=== PATIENT | male | born 1935 | race Caucasian/White ===

== ENCOUNTER 2017-11-20 11:45 | Inpatient (IN) | payer OTHER ==
[~2017-11-20] VITALS: Ht 165.1 cm; Wt 70.1 kg
[~2017-11-20 11:45] MED LIST: DIGOXIN250 MCG PO; METOPROLOL TART25 M1 PO; WARFARIN SODIUM5 M1 PO
--- NOTE | 2017-11-20 14:40 | ED DYSPNEA/ASTHMA COMPLAINT ---
History of Present Illness General Chief Complaint: Dyspnea (COPD, CHF, Other) Stated Complaint: DIFF BREATHING Source: patient, family, old records Exam Limitations: no limitations Vital Signs & Intake/Output Vital Signs & Intake/Output Vital Signs Date Time Temp Pulse Resp B/P B/P Pulse O2 O2 Flow FiO2 Mean Ox Delivery Rate 11/20 1954 98.4 84 18 164/85 11/20 1804 98.0 74 18 164/85 96 Room Air Room Air 11/20 1552 98 Room Air Room Air 11/20 1510 97.5 70 20 173/84 95 Room Air 11/20 1202 98.3 84 18 153/86 93 Room Air Allergies Coded Allergies: Sulfa (Sulfonamide Antibiotics) (Intermediate, HIVES 11/20/17) Reconcile Medications Digoxin 250 MCG TABLET 1 TAB PO DAILY AFIB (Reported) Metoprolol Tartrate 25 MG TABLET 1 TAB PO BID HTN (Reported) Warfarin Sodium 5 MG TABLET 1 TAB PO DAILY AFIB (Reported) Triage Note: 82 YEAR OLD MALE STATES THAT HE HAS HISTORY OF AFIB, TAKES COUMADIN STATES THAT FOR MONTHS NOW HE HAS BEEN HAVING EXERTIONAL SOB, STATES THAT HIS R LEG IS NOW SWOLLEN, O2 SAT 92 % ON RA. DENIES COUGH/CP. COMPLAINS THAT HE FEELS LIKE HIS FACE IS SWOLLEN Triage Nurses Notes Reviewed? yes Onset: Gradual Duration: x 1 month Timing: recent history Severity: moderate Activities at Onset: activity Prior Episodes/Possible Cause: occasional episodes Modifying Factors: Worsens With: movement. Associated Symptoms: denies HPI: 82 YEAR OLD MALE with history of htn, afib on coumadin, tb presents to the emergency room with family for evaluation complain 1 month history of progressively worsening dyspnea with exertion leg swelling. He states his symptoms are only present with exertion orthopnea. No shortness of breath at rest. He reports to a chest heaviness bilaterally nonradiating only with exertion when his shortness of breath comes on. No cough hemoptysis. No abdominal pain nausea vomiting diarrhea. No recent change in his appetite no weight loss. Patient is been seen by multiple doctors including fiberglass tube molder, and fleet maintenance manager Dr. Manzano with no known cause identified. He is on digoxin metoprolol and Coumadin He is supposed to have a workup at [place] next month on his abdomen as he was told that he had an enlarged spleen Past History Travel History Traveled to [place] past 21 day No Medical History Any Pertinent Medical History? see below for history Neurological: NONE EENT: NONE Cardiovascular: AFIB, hypertension Respiratory: NONE Gastrointestinal: NONE Hepatic: NONE Renal: NONE Musculoskeletal: NONE Psychiatric: NONE Endocrine: NONE Surgical History Surgical History: non-contributory Psychosocial History What is your primary language Chinese Tobacco Use: Never used ETOH Use: denies use Illicit Drug Use: denies illicit drug use Family History Hx Contributory? No Review of Systems Review of Systems Constitutional: Reports: see HPI. Comments Review of systems: See HPI, All other systems negative. Constitutional, no chills no fever, HEENT: no sore throat no congestion, Cardiovascular: chest pain , no palpitation Skin: no rashes, no change in skin Respiratory: dyspnea no cough no sputum GI: No nausea no vomiting, no diarrhea, : No dysuria Muscle skeletal: No joint pain, no back pain Neurologic: , no headache Heme/endocrine: No bruising Immunology: No lymphadenopathy Physical Exam Physical Exam General Appearance: well developed/nourished, alert, awake, comfortable Respiratory: normal breath sounds, chest non-tender, no respiratory distress Comments: Well-developed well-nourished person in no acute distress HEENT: Normal EENT exam; PERRL, EOMI, HEAD is atraumatic. moist mucous membranes. Neck: Supple, normal range of motion Back: Nontender,Full range of motion Cardiovascular: Regular rate and rhythms no murmurs rubs or gallops, normal JVP Respiratory: Chest nontender.There were no bony deformities, no asymmetry. No respiratory distress. Patient speaking in full complete sentences. Breath sounds clear to auscultation bilaterally: NO W/R/R Abdomen: Soft, nontender nondistended, Normal bowel sounds. No rebound/guarding, No appreciable enlargement of the abdominal aorta, No ascites. Extremity: b/l 2+ edema, full range of motion of extremities Neuro: Alert oriented x3, motor sensory normal. There were no obvious focal neurologic abnormalities. Skin: No appreciable rash on exposed skin, skin is warm and dry. Psych: Mood and affect is normal, memory and judgment is normal. Core Measures ACS in differential dx? Yes CVA/TIA Diagnosis No Sepsis Present: No Sepsis Focused Exam Completed? No Progress Differential Diagnosis: AMI, bronchitis, CHF, COPD, pneumonia, unstable angina, CIRRHOSIS, MISTY, ELECTROLYTE ABNORMALITY Plan of Care: Orders Procedure Date/time Status CHF Diet 11/21 B Active PROTHROMBIN TIME 11/21 06 Active BASIC ELECTROLYTES PLUS BUN&CR 11/21 0600 Active TROPONIN LEVEL 11/20 2335 Active EKG 11/20 2335 Active DIGOXIN 11/20 2300 Active Pathway - chart 11/20 1759 Active Pathway - chart 11/20 1758 Active House Staff 11/20 1758 Active Code Status 11/20 1758 Active ED Holding Orders 11/20 1734 Active Admit to inpatient 11/20 1734 Active Patient Data 11/20 1711 Active Telemetry/Animal Science Instructor 11/20 1303 Active TROPONIN LEVEL 11/20 1303 Complete PARTIAL THROMBOPLASTIN TIME 11/20 1303 Complete PROTHROMBIN TIME 11/20 1303 Complete MAGNESIUM 11/20 1303 Complete COMPREHENSIVE METABOLIC PANEL 11/20 1303 Complete CBC WITHOUT DIFFERENTIAL 11/20 1303 Complete B-TYPE NATRIURETIC PEP (BNP) 11/20 1303 Complete EKG 11/20 1149 Active Weight 11/20 UNK Active VTE Mechanical Prophylaxis 11/20 UNK Active Vital Signs 11/20 UNK Active Intake & Output 11/20 UNK Active Activity/Ambulation 11/20 UNK Active ECHOCARDIOGRAM 11/20 UNK Active Current Medications Sig/Marisa Start time Last Medication Dose Stop Time Status Admin Enoxaparin Sodium 40 MG DAILY 11/21 1000 AC (Lovenox) Furosemide 40 MG DAILY 11/21 1000 AC (Lasix) Metoprolol Tartrate 25 MG BID 11/20 2200 AC (Lopressor) Digoxin 0.25 MG DAILY 11/20 1922 AC 11/20 (Lanoxin) 1955 Acetaminophen 650 MG Q6P PRN 11/20 1800 AC (Tylenol) Acetaminophen 1,000 MG Q6P PRN 11/20 1800 AC (Ofirmev) Laboratory Tests 11/20/17 1545: Anion Gap 12, Estimated GFR > 60, BUN/Creatinine Ratio 20.0, Glucose 89, Calcium 8.5, Magnesium 1.7, Total Bilirubin 2.1 H, AST 38, ALT 37, Alkaline Phosphatase 173 H, Troponin I < 0.01, Hgc-G-Wapdkoytxoe Pept 675 H, Total Protein 7.0, Albumin 3.5, Globulin 3.5, Albumin/Globulin Ratio 1.0 L, PT 46.3 *H, INR 4.48 * H, APTT 47 H, CBC w Diff NO MAN DIFF REQ, RBC 4.11 L, MCV 91.1, MCH 30.6, RDW 15.6 H, MPV 10.5 H, Gran % 73.9, Lymphocytes % 12.1 L, Monocytes % 11.1 H, Eosinophils % 2.7, Basophils % 0.2, Absolute Granulocytes 3.9, Absolute Lymphocytes 0.6 L, Absolute Monocytes 0.6, Absolute Eosinophils 0.1, Absolute Basophils 0, PUBS MCHC 33.6 Labs ordered old records reviewed chest x-ray ultrasound ordered. Case discussed with Dr. Muro agrees with plan 1600 discussed with patient and his family at length all of his lab results to date. Call placed to cardiology CASE D/W DR MANZANO AGREES WITH [facility] FOR ADMISSION, LASIX 20MG IV ORDERED CASE D/W DR RAINES WILL ADMIT Diagnostic Imaging: Viewed by Me: Radiology Read, Ultrasound. Discussed w/RAD: Radiology Read, Ultrasound. Radiology Impression: PATIENT: LYRIC PHILLIPS PRESENT AGE: 82 PATIENT ACCOUNT NO: [id number] : 33 LOCATION: [facility] ORDERING PHYSICIAN: Sheldon MCKEON SERVICE DATE: 11/20/17 EXAM TYPE: US - US-EXT BILAT VENOUS DOPPLER EXAMINATION: US TRIPLEX OF LOWER EXTREMITIES, BILATERAL CLINICAL INFORMATION: Bilateral lower extremity edema. COMPARISON: None TECHNIQUE: Color-flow triplex imaging with spectral analysis and compression Doppler were performed on the lower extremities. FINDINGS: Respiratory variation, normal compression and augmented flow are noted throughout the lower extremities. The visualized common femoral vein, superficial femoral vein, profunda femoral vein, popliteal vein and midcalf peroneal and posterior tibial venous segments show no evidence of deep venous thrombosis. There is no Gibson's cyst. IMPRESSION: Normal triplex scan without evidence of deep venous thrombosis involving the lower extremities. DICTATED BY: Jerman Rosas MD DATE/TIME DICTATED:11/20/171536 DRIVER SUPERVISOR:GLADIS DATE/TIME TRANSCRIBED:11/20/171536 CONFIDENTIAL, DO NOT COPY WITHOUT APPROPRIATE AUTHORIZATION. <Electronically signed in Other Vendor System> SIGNED BY: Jerman Rosas MD 11/20/17 1545, PATIENT: LYRIC PHILLIPS PRESENT AGE: 82 PATIENT ACCOUNT NO: [id number] : 33 LOCATION: [facility] ORDERING PHYSICIAN: Sheldon MCKEON SERVICE DATE: 11/20/171446 EXAM TYPE: RAD - XRY-PORTABLE CHEST XRAY EXAMINATION: XR PORTABLE CHEST CLINICAL INFORMATION: Dyspnea. Chest heaviness. CHF. COMPARISON: Chest CT 05/04/2017. TECHNIQUE: Portable frontal view of the chest was obtained. FINDINGS: There are patchy airspace opacities at the right and left lung base. There is retrocardiac opacification. There is central vascular congestion. There is no large volume pleural effusion or pneumothorax. The heart is enlarged. There are pericardial calcifications. There are postoperative changes related to median sternotomy. The osseous structures are intact. IMPRESSION: 1. Patchy airspace opacities at the lung bases which may represent pulmonary edema. 2. Retrocardiac opacity may represent alveolar edema, atelectasis, consolidation not excluded. 3. Redemonstration of cardiomegaly with pericardial calcifications. DICTATED BY: Antelmo Forman MD DATE/TIME DICTATED:11/20/171520 DRIVER SUPERVISOR:GLADIS DATE/TIME TRANSCRIBED:11/20/171520 CONFIDENTIAL, DO NOT COPY WITHOUT APPROPRIATE AUTHORIZATION. <Electronically signed in Other Vendor System> SIGNED BY: Antelmo Forman MD 11/20/17 1531, PATIENT: LYRIC PHILLIPS PRESENT AGE: 82 PATIENT ACCOUNT NO: [id number] : LOCATION: [facility] ORDERING PHYSICIAN: Sheldon MCKEON SERVICE DATE: 162 EXAM TYPE: CAT - CT ABD & PELVIS W IV CONTRAST EXAMINATION: CT ABDOMEN AND PELVIS WITH CONTRAST CLINICAL INFORMATION: Elevated bilirubin. Shortness of breath. COMPARISON: 05/04/2017. TECHNIQUE: Contiguous axial thin section helical images of the abdomen and pelvis were performed following the administration of 94 mL of intravenous Optiray 320. The data set was reformatted in the coronal and sagittal planes and reviewed on an independent workstation. DLP: 381 mGy-cm. FINDINGS: There is a moderate right pleural effusion with associated airspace disease. There is a small left pleural effusion. There is scarring at the left lung base, unchanged from prior exam. Again identified are bilateral pleural calcifications within the lower hemithoraces. There is a stable calcified pleural mass within the lower left hemithorax measuring approximately 9 cm in greatest dimension. The visualized portions of the heart are otherwise unremarkable. The liver is of decreased size and overall decreased attenuation without concerning focal mass lesions. There is likely subcapsular nodularity. There are calculi within the gallbladder lumen. There is no pericholecystic fluid. There is free fluid about the inferior right lobe of the liver. The pancreas and adrenal glands are unremarkable. The spleen is of normal contour and attenuation. It is enlarged measuring 16.8 cm in greatest dimension. Both kidneys are of normal size and attenuation without hydronephrosis or nephrolithiasis. There are bilateral renal cysts. Following the administration of IV contrast, prompt symmetric nephrograms are displayed. There is a small amount of free fluid within the right lower quadrant. There is neither mesenteric nor retroperitoneal lymphadenopathy. Normal unopacified loops of small and large bowel are identified. There is no pelvic free fluid. The urinary bladder is unremarkable. There is neither pelvic nor inguinal lymphadenopathy. There is a small left fat-containing inguinal hernia. Bone windows: Neither sclerotic nor lytic bone lesions are identified. IMPRESSION: Small amount of abdominal free fluid is stated above. Cholelithiasis without evidence of cholecystitis. Moderate right pleural effusion with associated airspace disease. Stable calcified pleural mass and scarring at the left lung base. Low- attenuation liver without concerning focal mass lesions. There is subcapsular nodularity. Splenomegaly. DICTATED BY: Jerman Rosas MD DATE/TIME DICTATED:06/30 DRIVER SUPERVISOR:GLADIS DATE/TIME TRANSCRIBED:11/20/171705 CONFIDENTIAL, DO NOT COPY WITHOUT APPROPRIATE AUTHORIZATION. <Electronically signed in Other Vendor System> SIGNED BY: Jerman Rosas MD 11/20/17 1729 Initial ED EKG: normal QRS complex, normal sinus rhythm, nonspecific ST T wave chg Prior EKG: unchanged (2015) Departure Departure Time of Disposition: 170 Disposition: STILL A PATIENT Condition: Stable Clinical Impression Primary Impression: CHF exacerbation Secondary Impressions: Elevated bilirubin, Pulmonary edema, Thrombocytopenia Referrals: Hakeem Urbina MD (PCP/Family) Departure Forms: Customer Survey General Discharge Information Admission Note Spoke With: Jerman Raines MD Documentation of Exam: Documentation of any treatments & extenuating circumstances including Concerns Regarding Discharge (functional status, medication knowledge or non-compliance, living conditions, etc.) that warrant an admission rather than observation: [ CARDIO CONSULT, POSSIBLE HEME GI CONSULT, IV DIURESISI, TREND LABS PREMATURE DISCHARGE WOULD BE MEDICALLY HARMFUL, TELE MONITORING Critical Care Note Critical Care Note Critical Care Time: non-applicable
--- NOTE | 2017-11-20 15:31 | RADIOLOGY REPORT ---
EXAMINATION: XR PORTABLE CHEST CLINICAL INFORMATION: Dyspnea. Chest heaviness. CHF. COMPARISON: Chest CT 05/04/2017. TECHNIQUE: Portable frontal view of the chest was obtained. FINDINGS: There are patchy airspace opacities at the right and left lung base. There is retrocardiac opacification. There is central vascular congestion. There is no large volume pleural effusion or pneumothorax. The heart is enlarged. There are pericardial calcifications. There are postoperative changes related to median sternotomy. The osseous structures are intact. IMPRESSION: 1. Patchy airspace opacities at the lung bases which may represent pulmonary edema. 2. Retrocardiac opacity may represent alveolar edema, atelectasis, consolidation not excluded. 3. Redemonstration of cardiomegaly with pericardial calcifications.
--- NOTE | 2017-11-20 15:45 | ULTRASOUND REPORT ---
EXAMINATION: US TRIPLEX OF LOWER EXTREMITIES, BILATERAL CLINICAL INFORMATION: Bilateral lower extremity edema. COMPARISON: None TECHNIQUE: Color-flow triplex imaging with spectral analysis and compression Doppler were performed on the lower extremities. FINDINGS: Respiratory variation, normal compression and augmented flow are noted throughout the lower extremities. The visualized common femoral vein, superficial femoral vein, profunda femoral vein, popliteal vein and midcalf peroneal and posterior tibial venous segments show no evidence of deep venous thrombosis. There is no Gibson's cyst. IMPRESSION: Normal triplex scan without evidence of deep venous thrombosis involving the lower extremities.
[2017-11-20 15:51] LABS: ABSOLUTE BASOPHIL COUNT 0 /CUMM (0.0-0.2); ABSOLUTE EOSINOPHIL COUNT 0.1 /CUMM (0.0-0.7); ABSOLUTE GRANULOCYTE CT 3.9 /CUMM (1.4-6.5); ABSOLUTE LYMPH COUNT 0.6 /CUMM (1.2-3.4); ABSOLUTE MONOCYTE COUNT 0.6 /CUMM (0.10-0.60); BASOPHIL % 0.2 % (0.0-2.0); EOSINOPHIL % 2.7 % (0-5); GRANULOCYTE % 73.9 % (42.2-75.2); HEMATOCRIT 37.4 % (42-52); MEAN CORPUSCULAR HGB 30.6 PG (27.0-31.0); MEAN CORPUSCULAR HGB CONC 33.6 G/DL (33.0-37.0); MEAN CORPUSCULAR VOLUME 91.1 FL (80.0-94.0); MEAN PLATELET VOLUME 10.5 FL (7.4-10.4); RBC DISTRIBUTION WIDTH 15.6 % (11.5-14.5); RED BLOOD CELL CT 4.11 /CUMM (4.70-6.10); WHITE BLOOD CELL COUNT 5.2 /CUMM (4.8-10.8)
[2017-11-20 15:58] LABS: PLATELET COUNT 85 /CUMM (130-400)
[2017-11-20 16:11] LABS: PTT 47 SEC (25-37)
[2017-11-20 16:33] LABS: PT 46.3 SEC (9.4-12.5)
--- NOTE | 2017-11-20 17:16 | History & Physical ---
[place],[facility] 11/20/17 1715: General Information and HPI MD Statement: I have seen and personally examined LYRIC PHILLIPS and documented this H&P. The patient is a 82 year old M who presented with a patient stated chief complaint of [SOB]. Source of Information: patient, family, old records, W10 Exam Limitations: no limitations History of Present Illness: is an 82 year-old male with past medical history of atrial fibrillation on coumadin, congestive heart failure, constrictive pericarditis, Hx. of TB treated with INH, pericardiectomy, which was done on 08/12/2004. He had post op complication of recurrent pleural effusion s/p pleurodesis. Patient presented ot ED with a c/o SOB with exertion over the last 2 months, that gets worse last week, he also noticed swelling on B/L LE more on the right side, and also face swelling and also he report that he gained around 4 IB recently. He denies any orthopnea or PND. He recently found to have mediastinal lymphadenopathy, and thrombocytopenia he is following with contract implementation analyst and also Dr. Manzano, asmita is his GI doctor, and is his cardiollogist. Patient denies any chest pain, palpitation, dizziness, fever, chills and there is no change in urianry or bowel habits. Offnote: Last echocardiogram was done in February 2016 and showed normal left ventricular systolic function of > 60% Allergies/Medications Allergies: Coded Allergies: Sulfa (Sulfonamide Antibiotics) (Intermediate, HIVES 11/20/17) Home Med list Digoxin 250 MCG TABLET 1 TAB PO DAILY AFIB (Reported) Metoprolol Tartrate 25 MG TABLET 1 TAB PO BID HTN (Reported) Warfarin Sodium 5 MG TABLET 1 TAB PO DAILY AFIB (Reported) Past History Travel History Traveled to [place] past 21 day No Medical History Neurological: NONE EENT: NONE Cardiovascular: AFIB, hypertension Respiratory: NONE Gastrointestinal: NONE Hepatic: NONE Renal: NONE Musculoskeletal: NONE Psychiatric: NONE Endocrine: NONE Surgical History Surgical History: non-contributory Past Family/Social History Psychosocial History ETOH Use: denies use Illicit Drug Use: denies illicit drug use Review of Systems Review of Systems Constitutional: Reports: no symptoms. EENTM: Reports: no symptoms. Cardiovascular: Reports: edema, peripheral edema. Respiratory: Reports: short of breath. GI: Reports: no symptoms. Genitourinary: Reports: no symptoms. Musculoskeletal: Reports: neck pain. Skin: Reports: no symptoms. Neurological/Psychological: Reports: no symptoms. Hematologic/Endocrine: Reports: no symptoms. Immunologic/Allergic: Reports: no symptoms. All Other Systems: Reviewed and Negative Exam & Diagnostic Data Last 24 Hrs of Vital Signs/I&O Vital Signs Date Time Temp Pulse Resp B/P B/P Pulse O2 O2 Flow FiO2 Mean Ox Delivery Rate 11/20 2136 98.2 68 14 125/60 94 Room Air 11/20 1955 98.4 84 18 164/85 11/20 1804 98.0 74 18 164/85 96 Room Air Room Air 11/20 1552 98 Room Air Room Air 11/20 1510 97.5 70 20 173/84 95 Room Air 11/20 1202 98.3 84 18 153/86 93 Room Air Intake & Output 11/20 1600 11/20 0800 11/20 0000 Intake Total Output Total Balance Patient 164 lb Weight Physical Exam General Appearance Alert, Oriented X3, Cooperative, Mild Distress Skin No Rashes, No Breakdown, No Significant Lesion Skin Temp/Moisture Exam: Warm/Dry HEENT Atraumatic, PERRLA, EOMI, Mucous Membr. moist/pink Neck Supple Cardiovascular Regular Rate, Normal S1, Normal S2 Lungs Bibasilar crackle Abdomen Normal Bowel Sounds, Soft, No Tenderness Extremities B/L +3 EDEMA Vascular Normal Pulses, Pulses Symmetrical Last 24 Hrs of Labs/Hal: Laboratory Tests 11/20/17 1545: Anion Gap 12, Estimated GFR > 60, BUN/Creatinine Ratio 20.0, Glucose 89, Calcium 8.5, Magnesium 1.7, Total Bilirubin 2.1 H, AST 38, ALT 37, Alkaline Phosphatase 173 H, Troponin I < 0.01, Uef-I-Rjmxcstpehv Pept 675 H, Total Protein 7.0, Albumin 3.5, Globulin 3.5, Albumin/Globulin Ratio 1.0 L, PT 46.3 *H, INR 4.48 * H, APTT 47 H, CBC w Diff NO MAN DIFF REQ, RBC 4.11 L, MCV 91.1, MCH 30.6, RDW 15.6 H, MPV 10.5 H, Gran % 73.9, Lymphocytes % 12.1 L, Monocytes % 11.1 H, Eosinophils % 2.7, Basophils % 0.2, Absolute Granulocytes 3.9, Absolute Lymphocytes 0.6 L, Absolute Monocytes 0.6, Absolute Eosinophils 0.1, Absolute Basophils 0, PUBS MCHC 33.6 Diagnostic Data EKG Results A. fib rate controlled CXR Results IMPRESSION: 1. Patchy airspace opacities at the lung bases which may represent pulmonary edema. 2. Retrocardiac opacity may represent alveolar edema, atelectasis, consolidation not excluded. 3. Redemonstration of cardiomegaly with pericardial calcifications. Other Results Abdomen/pelvis CT: IMPRESSION: Small amount of abdominal free fluid is stated above. Cholelithiasis without evidence of cholecystitis. Moderate right pleural effusion with associated airspace disease. Stable calcified pleural mass and scarring at the left lung base. Low-attenuation liver without concerning focal mass lesions. There is subcapsular nodularity. Splenomegaly. Assessment/Plan Assessment: is an 82 year-old male with past medical history of atrial fibrillation on coumadin, congestive heart failure, constrictive pericarditis, Hx. of TB treated with INH, pericardiectomy, which was done on 08/12/2004. He had post op complication of recurrent pleural effusion s/p pleurodesis. presented with SOB and B/L LE swelling admitted for CHF exacerbation Vitals, examination, labs and imaging as above. Assessment: -CHF exacerbation -A. Fib rate controlled -Supratherapeutic INR -Thrombocytopenia/Splenomegaly -Mediastinal lymphadenopathy Plan: -Will admitt the patient to general medicine floor -First troponin and EKG was negative, will check again at 11:30 pm -Cardiology consult was placed with Dr. Manzano -Will start diuresis with IV Lasix -Strict I's and O's, daily weight -Closely moniotr kidney function, will repeat BEP at am -Will continue Digoxin, Metoprolol at home dose -Will hold coumadin for today, check INR at am and dose coumadin -Will check Echocardiogram. -CHF diet -DVT PPx coumadin (Currently on hold for supratherapeutic INR) -Full code As Ranked By This Provider Problem List: 1. CHF exacerbation Core Measures/Misc (07/30) Acute Coronary Syndrome ACS Diagnosis: No Congestive Heart Failure Congestive Heart Failure Diagnosis No Cerebrovascular Accident CVA/TIA Diagnosis: No VTE (View Protocol) VTE Risk Factors Acute Medical Illness No Mechanical VTE Prophylaxis d/t N/A MechProphylax Ordered No VTE Pharm Prophylaxis d/t NA PharmProphylax ordered Sepsis (View protocol) Sepsis Present: No Jerman Raines MD 11/20/17 4232: Attending MD Review Statement Attending Statement Attending MD Statement: examined this patient, discuss w/resident/PA/NETWORKING TECHNICIAN, agreed w/resident/PA/NETWORKING TECHNICIAN, discussed with family, reviewed EMR data (avail), reviewed images, amended to note Attending Assessment/Plan: The patient is an 82 yo male with h/o afib (on coumadin, s/p prior cardioversions), CHF, constrictive pericarditis/pericardectomy (Dr. Hill- [place]), TB (INH) Rx), and h/o post operative pleural effusion requiring pleurodesis who presented in the ED with c/o 2 month h/o progressive dyspnea that had worsened more significantly over 1 week. He had gained 4 lb and noted increased LE edema. He was recently found to have mediastinal lymphadenopathy and thrombocytopenia and is being seen by heme/onc along with Dr. Manzano his internal control manager. He also noted some facial swelling. Mediastinal biopsy was planned for 02/28 in [place]. BNP was elevated at 675. Physical Exam; VS: T 98.3, P 84, R 18, BP 153/86, PO 93$ RA HEENT: eyes- PERRLA, EOMI rosalind- moist mucosa Neck: ? mild JVD Chest: bibasilar rales present Cor: irreg rhythm, nl rate, nl S1, S2 w/o murm Abd: BS+, soft, NT, distended, + splenomegaly Ext: trace edema bilat, + venous stasis Neuro: alert & oriented x 3, non-focal Labs- as above Impression/Plan: #CHF- prior nl systolic function, so presume preserved systolic CHF. Sings of both right and left failure. BNP elevated. Plan: Admit to telemetry service. IV Lasix as per Cardiology (Dr. Manzano consulted). Follow I/O's, daily weights, BEP. Observe response Check ECHO - TTE #Mediastinal Lymphadenopathy/Splenomegaly/Thrombocytopenia- ? lymphoma/ myeloproliferative disease. Patient has been undergoing evaluation by heme/onc and plan is for mediastinal biopsy 02/28 in [place]. Plan: OP follow-up when discharged. #Chronic Atrial Fibrillation- rate is well controlled. Plan: Continue current meds- Metoprolol/Digoxin/Coumadin- INR 2-3. #Coagulopathy- INR 4.48 at present. Plan: Hold Coumadin- want INR 2-3 range. Watch for bleeding.
--- NOTE | 2017-11-20 17:22 | Cons- Cardiology ---
General Information and HPI Consulting Request Date of Consult: 11/20/17 Requested By: Hospitalist Reason for Consult: CHF, chronic Afib. Source of Information: patient, family, old records Exam Limitations: no limitations History of Present Illness: Sammy Phillips is a very nice 82 year-old male with a complicated past medical history. I have been following him since 1995 for paroxysmal atrial fibrillation. He required several cardioversions in 2004 and again in 2006, but his atrial fibrillation became permanent around 2008. 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 The etiology was never entirely clear, but we thought the most likely etiology could have been tuberculosis, as he was an immigrant from [place] with a positive PPD. He had been treated in the past with INH. He was referred to Dr. Emeka Hill in [place] and had a pericardiectomy on 08/12/2004. He had post op complication of recurrent pleural effusion requiring some drainage but eventually this all resolved. Since late 2003 Mr. Phillips has been doing well. He has had no episodes of recurrent congestive heart failure. As noted he was in and out of atrial fibrillation until around 2008 when his atrial fibrillation became permanent and we elected to go with rate control and anticoagulation. Since then he has actually done very well. His heart rate has been well controlled. His echocardiogram in 12/2012 showed normal left ventricular systolic function. He had some thickening of his mitral and aortic valves, dilated atria, and moderate to severe pulmonary hypertension with a peak systolic pressure of about 55- 60 mmHg. A followup echocardiogram was done in February 2016 and showed normal left ventricular systolic function with no wall motion abnormalities. He had dilation of his atria, some thickening of his mitral valve and calcification of the mitral annulus, some sclerosis of his aortic valve with no aortic stenosis, and mild to moderate aortic regurgitation. He only had mild pulmonary hypertension at this time with a pressure estimated to be about 40 mmHg. His home meds include digoxin 0.25 mg daily, metoprolol 25 mg b.i.d., and warfarin as directed by the anticoagulation clinic. At the time of his previous visit, he was planned for a mediastinal node biopsy in [place] in February, and we cleared him for that procedure with brief interruption of his warfarin. He apparently had it and was told that everything was okay, but I do not have any of those records at this time. At the time of his last visit in June 2017 he was feeling well. He had some mild peripheral edema which I thought was due to venous stasis but otherwise he was stable. The patient called the office today to state that he was having shortness of breath and increasing edema and we recommended that he come to the emergency department. There he was found to be in congestive heart failure clinically and on chest x-ray and has been started on IV diuretics. He is not complaining of any chest pain. ProBNP is mildly elevated at 675 and initial troponin is negative. Venous Doppler of the extremities is negative for DVT. Allergies/Medications Allergies: Coded Allergies: Sulfa (Sulfonamide Antibiotics) (Intermediate, HIVES 11/20/17) Home Med List: Digoxin 250 MCG TABLET 1 TAB PO DAILY AFIB (Reported) Metoprolol Tartrate 25 MG TABLET 1 TAB PO BID HTN (Reported) Warfarin Sodium 5 MG TABLET 1 TAB PO DAILY AFIB (Reported) Current Medications: Current Medications Sig/Marisa Start time Last Medication Dose Route Stop Time Status Admin Furosemide 20 MG ONCE ONE 11/20 1630 UNVr IV 11/20 1631 Furosemide 0 .STK-MED ONE 11/20 1625 DC IV Review of Systems Review of Systems: He has no other complaints in the review of systems. Past History Travel History Traveled to [place] past 21 day No Medical History Neurological: NONE EENT: NONE Cardiovascular: AFIB, hypertension Respiratory: NONE Gastrointestinal: NONE Hepatic: NONE Renal: NONE Musculoskeletal: NONE Psychiatric: NONE Endocrine: NONE Blood Disorders: thrombocytopenia Surgical History Surgical History: non-contributory Psychosocial History ETOH Use: denies use Illicit Drug Use: denies illicit drug use Exam & Diagnostic Data Vital Signs and I&O Vital Signs Date Time Temp Pulse Resp B/P B/P Pulse O2 O2 Flow FiO2 Mean Ox Delivery Rate 11/20 1552 98 Room Air Room Air 11/20 1510 97.5 70 20 173/84 95 Room Air 11/20 1202 98.3 84 18 153/86 93 Room Air Intake & Output 11/20 1600 11/20 0811/20 0000 11/19 1600 11/19 0000 Intake Total Output Total Balance Patient 164 lb Weight Physical Exam: He is well-developed well-nourished elderly man in no acute distress HEENT exam is normal Neck veins not distended Carotids normal Chest reveals a few bibasilar rales posteriorly Heart reveals irregular rhythm and no murmurs Extremities reveal 1-2+ edema to the knees. Labs/Hal Results: Laboratory Tests 11/20 1545 Chemistry Sodium (137 - 145 mmol/L) 140 Potassium (3.5 - 5.1 mmol/L) 4.3 Chloride (98 - 107 mmol/L) 102 Carbon Dioxide (22 - 30 mmol/L) 25 Anion Gap (5 - 16) 12 BUN (9 - 20 mg/dL) 16 Creatinine (0.7 - 1.2 mg/dL) 0.8 Estimated GFR (>60 ml/min) > 60 BUN/Creatinine Ratio (7 - 25 %) 20.0 Glucose (65 - 99 mg/dL) 89 Calcium (8.4 - 10.2 mg/dL) 8.5 Magnesium (1.6 - 2.3 mg/dL) 1.7 Total Bilirubin (0.2 - 1.3 mg/dL) 2.1 H AST (17 - 59 U/L) 38 ALT (21 - 72 U/L) 37 Alkaline Phosphatase (< 127 U/L) 173 H Troponin I (<0.11 ng/ml) < 0.01 Hie-U-Cyrcpotslor Pept (<125 pg/mL) 675 H Total Protein (6.3 - 8.2 g/dL) 7.0 Albumin (3.5 - 5.0 g/dL) 3.5 Globulin (1.9 - 4.2 gm/dL) 3.5 Albumin/Globulin Ratio (1.1 - 2.2 %) 1.0 L Coagulation PT (9.4 - 12.5 SEC) 46.3 *H INR (0.90 - 1.17) 4.48 *H APTT (25 - 37 SEC) 47 H Hematology CBC w Diff NO MAN DIFF REQ WBC (4.8 - 10.8 /CUMM) 5.2 RBC (4.70 - 6.10 /CUMM) 4.11 L Hgb (14.0 - 18.0 G/DL) 12.6 L Hct (42 - 52 %) 37.4 L MCV (80.0 - 94.0 FL) 91.1 MCH (27.0 - 31.0 PG) 30.6 RDW (11.5 - 14.5 %) 15.6 H Plt Count (130 - 400 /CUMM) 85 L MPV (7.4 - 10.4 FL) 10.5 H Gran % (42.2 - 75.2 %) 73.9 Lymphocytes % (20.5 - 51.1 %) 12.1 L Monocytes % (1.7 - 9.3 %) 11.1 H Eosinophils % (0 - 5 %) 2.7 Basophils % (0.0 - 2.0 %) 0.2 Absolute Granulocytes (1.4 - 6.5 /CUMM) 3.9 Absolute Lymphocytes (1.2 - 3.4 /CUMM) 0.6 L Absolute Monocytes (0.10 - 0.60 /CUMM) 0.6 Absolute Eosinophils (0.0 - 0.7 /CUMM) 0.1 Absolute Basophils (0.0 - 0.2 /CUMM) 0 PUBS MCHC (33.0 - 37.0 G/DL) 33.6 Diagnostic Data EKG Results Atrial fibrillation rate of 74, right axis deviation, LVH. CXR Results PATIENT: SAMMY PHILLIPS PRESENT AGE: 82 PATIENT ACCOUNT NO: [id number] : 33 LOCATION: [facility] ORDERING PHYSICIAN: Sheldon MCKEON SERVICE DATE: 11/20/17 EXAM TYPE: RAD - XRY-PORTABLE CHEST XRAY EXAMINATION: XR PORTABLE CHEST CLINICAL INFORMATION: Dyspnea. Chest heaviness. CHF. COMPARISON: Chest CT 05/04/2017. TECHNIQUE: Portable frontal view of the chest was obtained. FINDINGS: There are patchy airspace opacities at the right and left lung base. There is retrocardiac opacification. There is central vascular congestion. There is no large volume pleural effusion or pneumothorax. The heart is enlarged. There are pericardial calcifications. There are postoperative changes related to median sternotomy. The osseous structures are intact. IMPRESSION: 1. Patchy airspace opacities at the lung bases which may represent pulmonary edema. 2. Retrocardiac opacity may represent alveolar edema, atelectasis, consolidation not excluded. 3. Redemonstration of cardiomegaly with pericardial calcifications. DICTATED BY: Antelmo Forman MD DATE/TIME DICTATED:11/20/171520 ALUMNI RELATIONS COORDINATOR:GLADIS DATE/TIME TRANSCRIBED:11/20/171520 CONFIDENTIAL, DO NOT COPY WITHOUT APPROPRIATE AUTHORIZATION. <Electronically signed in Other Vendor System> SIGNED BY: Antelmo Forman MD 11/20/17 1531 Other Results PATIENT: SAMMY PHILLIPS PRESENT AGE: 82 PATIENT ACCOUNT NO: [id number] : 33 LOCATION: [facility] ORDERING PHYSICIAN: Sheldon MCKEON SERVICE DATE: 11/20/17-1507 EXAM TYPE: US - US-EXT BILAT VENOUS DOPPLER EXAMINATION: US TRIPLEX OF LOWER EXTREMITIES, BILATERAL CLINICAL INFORMATION: Bilateral lower extremity edema. COMPARISON: None TECHNIQUE: Color-flow triplex imaging with spectral analysis and compression Doppler were performed on the lower extremities. FINDINGS: Respiratory variation, normal compression and augmented flow are noted throughout the lower extremities. The visualized common femoral vein, superficial femoral vein, profunda femoral vein, popliteal vein and midcalf peroneal and posterior tibial venous segments show no evidence of deep venous thrombosis. There is no Gibson's cyst. IMPRESSION: Normal triplex scan without evidence of deep venous thrombosis involving the lower extremities. DICTATED BY: Jerman Rosas MD DATE/TIME DICTATED:11/20/171536 ALUMNI RELATIONS COORDINATOR:GLADIS DATE/TIME TRANSCRIBED:11/20/171536 CONFIDENTIAL, DO NOT COPY WITHOUT APPROPRIATE AUTHORIZATION. <Electronically signed in Other Vendor System> SIGNED BY: Jerman Rosas MD 11/20/17 1542 Assessment/Plan Assessment/Plan Mr. Phillips is an 82-year-old man with chronic atrial fibrillation. He is status post pericardiectomy. He has developed increasing peripheral edema and shortness of breath and is clinically in both acute right and left congestive heart failure. His last echo documented good LV function with dilated atria. He is not chronically on diuretics. He did have a past episode of congestive heart failure but this was precipitated by constrictive pericarditis and he has not had any after his pericardiectomy up until now. Recommendation is for follow-up echocardiogram just to make sure that his LV function has not deteriorated and to assess his pulmonary artery pressure, which in the past has been elevated. Treatment will be diuresis. We will watch his renal function carefully and back off of diuretics if his BUN and creatinine rise. He will undoubtedly need to take chronic diuretics as an outpatient. Note his INR is supratheraputic and warfarin should be held until INR is back in theraputic range. The patient also has some other nonspecific abnormalities including splenomegaly and thrombocytopenia and mediastinal adenopathy. Some of these have been evaluated and some are in the process, but I don't think they are relevant to his current presentation. I don't think the patient needs telemetry monitoring as his rate is well controlled and there is no evidence of myocardial ischemia. Copies To: Carlitos MONIQUE,Hakeem Umana Consult Acknowledgment - Thank you for your consult request.
--- NOTE | 2017-11-20 17:29 | CT SCAN REPORT ---
EXAMINATION: CT ABDOMEN AND PELVIS WITH CONTRAST CLINICAL INFORMATION: Elevated bilirubin. Shortness of breath. COMPARISON: 05/04/2017. TECHNIQUE: Contiguous axial thin section helical images of the abdomen and pelvis were performed following the administration of 94 mL of intravenous Optiray 320. The data set was reformatted in the coronal and sagittal planes and reviewed on an independent workstation. DLP: 381 mGy-cm. FINDINGS: There is a moderate right pleural effusion with associated airspace disease. There is a small left pleural effusion. There is scarring at the left lung base, unchanged from prior exam. Again identified are bilateral pleural calcifications within the lower hemithoraces. There is a stable calcified pleural mass within the lower left hemithorax measuring approximately 9 cm in greatest dimension. The visualized portions of the heart are otherwise unremarkable. The liver is of decreased size and overall decreased attenuation without concerning focal mass lesions. There is likely subcapsular nodularity. There are calculi within the gallbladder lumen. There is no pericholecystic fluid. There is free fluid about the inferior right lobe of the liver. The pancreas and adrenal glands are unremarkable. The spleen is of normal contour and attenuation. It is enlarged measuring 16.8 cm in greatest dimension. Both kidneys are of normal size and attenuation without hydronephrosis or nephrolithiasis. There are bilateral renal cysts. Following the administration of IV contrast, prompt symmetric nephrograms are displayed. There is a small amount of free fluid within the right lower quadrant. There is neither mesenteric nor retroperitoneal lymphadenopathy. Normal unopacified loops of small and large bowel are identified. There is no pelvic free fluid. The urinary bladder is unremarkable. There is neither pelvic nor inguinal lymphadenopathy. There is a small left fat-containing inguinal hernia. Bone windows: Neither sclerotic nor lytic bone lesions are identified. IMPRESSION: Small amount of abdominal free fluid is stated above. Cholelithiasis without evidence of cholecystitis. Moderate right pleural effusion with associated airspace disease. Stable calcified pleural mass and scarring at the left lung base. Low-attenuation liver without concerning focal mass lesions. There is subcapsular nodularity. Splenomegaly.
--- NOTE | 2017-11-20 23:07 | Admission Certification ---
Admission Certification Certification Statement - As attending physician, I certify that at the time of - admission, based on clinical presentation, severity of - symptoms, need for further diagnostic testing and - therapeutic interventions, and risk of adverse outcomes - without in-hospital treatment, in my clinical assessment, - this patient requires an acute hospital stay for a minimum - of two nights or longer. I have also considered psychsocial - factors such as support system, advanced age, financial - issues, cognitive issues, and failed out-patient treatments, - past re-admission history, safety of patient, and lack of - compliance as applicable. Specific rationale supporting this admission is: Patient presents with acute and chronic diastolic CHF (both right & left). Needs admit to telemetry and IV Lasix for diuresis. Close monitoring I/O's and weights. Cardiology consult- Dr. Manzano.
[2017-11-21 06:20] LABS: ABSOLUTE BASOPHIL COUNT 0 /CUMM (0.0-0.2); ABSOLUTE EOSINOPHIL COUNT 0.2 /CUMM (0.0-0.7); ABSOLUTE GRANULOCYTE CT 3.3 /CUMM (1.4-6.5); ABSOLUTE LYMPH COUNT 0.8 /CUMM (1.2-3.4); ABSOLUTE MONOCYTE COUNT 0.8 /CUMM (0.10-0.60); BASOPHIL % 0.4 % (0.0-2.0); EOSINOPHIL % 3.4 % (0-5); GRANULOCYTE % 65.8 % (42.2-75.2); HEMATOCRIT 36.6 % (42-52); MEAN CORPUSCULAR HGB 30.6 PG (27.0-31.0); MEAN CORPUSCULAR HGB CONC 33.7 G/DL (33.0-37.0); MEAN CORPUSCULAR VOLUME 90.9 FL (80.0-94.0); MEAN PLATELET VOLUME 11.2 FL (7.4-10.4); PLATELET COUNT 82 /CUMM (130-400); RBC DISTRIBUTION WIDTH 15.9 % (11.5-14.5); RED BLOOD CELL CT 4.03 /CUMM (4.70-6.10)
[2017-11-21 06:31] LABS: PT 43.7 SEC (9.4-12.5)
--- NOTE | 2017-11-21 08:28 | PN- Housestaff ---
See Addendum Subjective Follow-up For: CHF Subjective: No overnight events. Feels like his breathing is improved, swelling has improved as well. Complaining of some itchy back on the right lower. No CP or other issues. Review of Systems Constitutional: Reports: no symptoms. EENTM: Reports: no symptoms. Cardiovascular: Reports: see HPI. Respiratory: Reports: no symptoms. Gastrointestinal: Reports: no symptoms. Genitourinary: Reports: no symptoms. Musculoskeletal: Reports: no symptoms. Skin: Reports: see HPI. Neurological/Psychological: Reports: no symptoms. Hematologic/Endocrine: Reports: no symptoms. Immunologic/Allergic: Reports: no symptoms. Objective Last 24 Hrs of Vital Signs/I&O Vital Signs Date Time Temp Pulse Resp B/P B/P Pulse O2 O2 Flow FiO2 Mean Ox Delivery Rate 11/21 06 98.0 62 20 121/60 94 Room Air 11/20 2218 77 117/59 11/20 2215 98.4 77 16 117/59 95 Room Air 11/20 2136 98.2 68 14 125/60 94 Room Air 11/20 1955 98.4 84 18 164/85 11/20 1804 98.0 74 18 164/85 96 Room Air Room Air 11/20 1552 98 Room Air Room Air 11/20 1510 97.5 70 20 173/84 95 Room Air 11/20 1202 98.3 84 18 153/86 93 Room Air Intake & Output 11/21 1600 11/21 0800 11/21 0000 Intake Total Output Total 2125 1750 Balance -2125 -1750 Output, Urine 2125 1750 Physical Exam General Appearance: Alert, Oriented X3, Cooperative, No Acute Distress Skin: No Rashes, No Breakdown, No Significant Lesion, no rash on back Cardiovascular: irregular Lungs: Clear to Auscultation Abdomen: Normal Bowel Sounds, Soft, No Tenderness Neurological: Normal Speech Extremities: 2+ pittign edema bilaterally Current Medications: Current Medications Sig/Marisa Start time Last Medication Dose Route Stop Time Status Admin Acetaminophen 650 MG Q6P PRN 11/20 1800 AC PO Acetaminophen 1,000 MG Q6P PRN 11/20 1800 AC IV Digoxin 0.25 MG DAILY 11/20 192 AC 11/20 PO 1955 Enoxaparin Sodium 40 MG DAILY 11/21 1000 AC SC Furosemide 40 MG DAILY 01/09 1000 DC IV Furosemide 0 .STK-MED ONE 11/20 2310 DC IV Furosemide 40 MG BID 11/20 2215 AC 11/20 IV 2315 Furosemide 20 MG ONCE ONE 11/20 1630 DC 11/20 IV 11/20 1631 1704 Furosemide 0 .STK-MED ONE 11/20 1625 DC IV Metoprolol Tartrate 0 .STK-MED ONE 11/20 2213 DC PO Metoprolol Tartrate 25 MG BID 11/20 2200 AC PO Last 24 Hrs of Lab/Hal Results Last 24 Hrs of Labs/Mics: Laboratory Tests 11/21/17 0603: Anion Gap 15, Estimated GFR > 60, BUN/Creatinine Ratio 23.3, PT 43.7 *H, INR 4.22 *H, CBC w Diff NO MAN DIFF REQ, RBC 4.03 L, MCV 90.9, MCH 30.6, RDW 15.9 H, MPV 11.2 H, Gran % 65.8, Lymphocytes % 15.1 L, Monocytes % 15.3 H, Eosinophils % 3.4, Basophils % 0.4, Absolute Granulocytes 3.3, Absolute Lymphocytes 0.8 L, Absolute Monocytes 0.8 H, Absolute Eosinophils 0.2, Absolute Basophils 0, PUBS MCHC 33.7 11/20/17 2326: Troponin I 0.01, Digoxin 1.9 11/20/17 1545: Anion Gap 12, Estimated GFR > 60, BUN/Creatinine Ratio 20.0, Glucose 89, Calcium 8.5, Magnesium 1.7, Total Bilirubin 2.1 H, AST 38, ALT 37, Alkaline Phosphatase 173 H, Troponin I < 0.01, [id number] Pept 675 H, Total Protein 7.0, Albumin 3.5, Globulin 3.5, Albumin/Globulin Ratio 1.0 L, PT 46.3 *H, INR 4.48 * H, APTT 47 H, CBC w Diff NO MAN DIFF REQ, RBC 4.11 L, MCV 91.1, MCH 30.6, RDW 15.6 H, MPV 10.5 H, Gran % 73.9, Lymphocytes % 12.1 L, Monocytes % 11.1 H, Eosinophils % 2.7, Basophils % 0.2, Absolute Granulocytes 3.9, Absolute Lymphocytes 0.6 L, Absolute Monocytes 0.6, Absolute Eosinophils 0.1, Absolute Basophils 0, PUBS MCHC 33.6 Assessment/Plan Assessment: is an 82 year-old male with past medical history of atrial fibrillation on coumadin, congestive heart failure, constrictive pericarditis, Hx. of TB treated with INH, pericardiectomy, which was done on 08/12/2004. He had post op complication of recurrent pleural effusion s/p pleurodesis. presented with SOB and B/L LE swelling admitted for CHF exacerbation. Problem list: 1. Acute decompensation heart failure 2. Supratherapeutic INR 3. Mediastinal lymphadenopathy 4. Splenomegaly 5. Thrombocytopenia #Acute decompensation heart failure: The patient has never had CHF in the past except when associated with constrictive pericarditis. Patient presented with history of weight gain, leg swelling, and shortness of breath that was worse on exertion. BNP was mildly elevated. Patient says that he is feeling better status post diuresis. Cardiology was consulted and does not believe he needs telemetry monitoring. He was -1.7 L yesterday and -2.1 L today. His weight has not changed though. -Transfer to [facility] -Continue furosemide 40 mg IV twice a day -Continue home digoxin, metoprolol -Appreciate cardiology recommendations -Daily weight, strict I's and O's -TTE -Ask cardiology about digoxin dosing #Supratherapeutic INR: Patient on warfarin for atrial for ablation. INR supratherapeutic. Home warfarin dose 5 mg. -Daily INR, dose warfarin #Mediastinal lymphadenopathy/Splenomegaly/Thrombocytopenia: Patient says he had a recent lung biopsy, he may be confusing this with pleurodesis. He is followed by Dr. Pradhan. Apparently, he is scheduled for a mediastinal biopsy in February in [place] for evaluation by hematology/oncology for potential lymphoma versus myeloproliferative disease. -Outpatient follow-up DVT prophylaxis with warfarin Heart healthy diet Full code Problem List: 1. CHF exacerbation Pain Ratin Pain Location: no pain Pain Goal: Remain pain free Pain Plan: see a/p Tomorrow's Labs & Rationales: cbc, bep
--- NOTE | 2017-11-21 10:09 | PN- Cardiology ---
Subjective Subjective: The patient is feeling better today. He is less short of breath. His edema has improved. He is negative almost 5 L already. He is on Lasix 40 mg twice daily IV. Objective Vital Signs and I&Os Vital Signs Date Time Temp Pulse Resp B/P B/P Pulse O2 O2 Flow FiO2 Mean Ox Delivery Rate 11/21 1006 96.5 64 18 126/66 11/21 1006 96.5 64 18 126/66 11/21 0853 96.5 80 18 124/66 94 Room Air 11/21 0827 98 Room Air 11/21 0600 98.0 62 20 121/60 94 Room Air 11/20 2218 77 117/59 11/20 2215 98.4 77 16 117/59 95 Room Air 11/20 2136 98.2 68 14 125/60 94 Room Air 11/20 1955 98.4 84 18 164/85 11/20 1804 98.0 74 18 164/85 96 Room Air Room Air 11/20 1552 98 Room Air Room Air 11/20 1510 97.5 70 20 173/84 95 Room Air 11/20 1202 98.3 84 18 153/86 93 Room Air Intake & Output 11/21 1600 11/21 0800 11/21 0000 11/20 1600 11/20 0811/20 0000 Intake Total Output Total 600 2125 1750 Balance -600 -2125 -1750 Output, Urine 600 2125 1750 Patient 164 lb 164 lb Weight Weight Reported by Patient Measurement Method Physical Exam: He is in no distress HEENT exam is normal Chest is clear Heart reveals irregular rhythm, normal rate, no murmurs Extremities only trace edema Current Medications: Current Medications Sig/Marisa Start time Last Medication Dose Route Stop Time Status Admin Acetaminophen 650 MG Q6P PRN 11/20 1800 AC PO Acetaminophen 1,000 MG Q6P PRN 11/20 1800 AC IV Digoxin 0.25 MG DAILY 11/20 1922 AC 11/21 PO 1006 Enoxaparin Sodium 40 MG DAILY 11/21 1000 CAN SC Furosemide 40 MG DAILY 11/21 1000 DC IV Furosemide 0 .STK-MED ONE 11/20 2310 DC IV Furosemide 40 MG BID 11/20 2215 AC 11/21 IV 1006 Furosemide 20 MG ONCE ONE 11/20 1630 DC 11/20 IV 11/20 1631 1704 Furosemide 0 .STK-MED ONE 11/20 1625 DC IV Metoprolol Tartrate 0 .STK-MED ONE 11/20 2213 DC PO Metoprolol Tartrate 25 MG BID 11/20 2199 AC PO Results Last 48 Hrs of Labs/Mics: Laboratory Tests 11/21/17 0603: Anion Gap 15, Estimated GFR > 60, BUN/Creatinine Ratio 23.3, PT 43.7 *H, INR 4.22 *H, CBC w Diff NO MAN DIFF REQ, RBC 4.03 L, MCV 90.9, MCH 30.6, RDW 15.9 H, MPV 11.2 H, Gran % 65.8, Lymphocytes % 15.1 L, Monocytes % 15.3 H, Eosinophils % 3.4, Basophils % 0.4, Absolute Granulocytes 3.3, Absolute Lymphocytes 0.8 L, Absolute Monocytes 0.8 H, Absolute Eosinophils 0.2, Absolute Basophils 0, PUBS MCHC 33.7 11/20/17 2326: Troponin I 0.01, Digoxin 1.9 11/20/17 1545: Anion Gap 12, Estimated GFR > 60, BUN/Creatinine Ratio 20.0, Glucose 89, Calcium 8.5, Magnesium 1.7, Total Bilirubin 2.1 H, AST 38, ALT 37, Alkaline Phosphatase 173 H, Troponin I < 0.01, [id number] Pept 675 H, Total Protein 7.0, Albumin 3.5, Globulin 3.5, Albumin/Globulin Ratio 1.0 L, PT 46.3 *H, INR 4.48 * H, APTT 47 H, CBC w Diff NO MAN DIFF REQ, RBC 4.11 L, MCV 91.1, MCH 30.6, RDW 15.6 H, MPV 10.5 H, Gran % 73.9, Lymphocytes % 12.1 L, Monocytes % 11.1 H, Eosinophils % 2.7, Basophils % 0.2, Absolute Granulocytes 3.9, Absolute Lymphocytes 0.6 L, Absolute Monocytes 0.6, Absolute Eosinophils 0.1, Absolute Basophils 0, PUBS MCHC 33.6 Assessment/Plan Assessment/Plan The patient is already significantly improved in terms of fluid overload and right and left congestive heart failure. We are awaiting his echocardiogram. I recommend discontinuing IV Lasix and putting him on oral Lasix 40 mg daily. I would ambulate him. We're awaiting his echocardiogram. He can probably be discharged by tomorrow morning. Continue telemetry? No
[2017-11-21 14:45] VITALS: BP 110/70
[2017-11-21 15:29] VITALS: BP 110/70
[2017-11-21 16:00] VITALS: BP 124/78
[2017-11-21 21:00] VITALS: BP 128/68
[2017-11-21 22:09] VITALS: BP 116/60
[2017-11-22 05:58] VITALS: BP 100/52
--- NOTE | 2017-11-22 07:42 | PN- Housestaff ---
Mita MONIQUE,Macey 11/22/17 0742: Subjective Follow-up For: CHF A. fib with supratherapeutic INR Subjective: Patient is seen and examined at bedside, he reports improvement of his breathing , denies any cough, expectoration, shortness of breath, he also reports improvement of his lower extremity edema. He denies any nausea, vomiting, diarrhea or constipation Review of Systems Constitutional: Denies: no symptoms. Cardiovascular: Denies: chest pain, edema, orthopena, palpitations. Respiratory: Denies: cough, hemoptysis, orthopnea, short of breath. Gastrointestinal: Denies: no symptoms. Genitourinary: Denies: no symptoms. Musculoskeletal: Denies: no symptoms. Skin: Denies: no symptoms. Objective Last 24 Hrs of Vital Signs/I&O Vital Signs Date Time Temp Pulse Resp B/P B/P Pulse O2 O2 Flow FiO2 Mean Ox Delivery Rate 11/22 09 98.2 64 14 122/68 11/22 0912 98.2 64 14 122/68 11/22 0800 93 Room Air 11/22 0558 97.8 67 20 100/52 92 Room Air 11/21 2209 98.1 88 20 116/60 94 11/21 2102 76 128/68 11/21 2100 78 128/68 11/21 1600 97.8 80 14 124/78 94 Room Air 11/21 1529 97.5 82 20 110/70 94 Room Air 11/21 1445 97.5 82 14 110/70 94 Room Air Intake & Output 11/22 1600 11/22 0800 11/22 0000 Intake Total 120 240 Output Total 600 500 Balance -480 -260 Intake, Oral 120 240 Output, Urine 600 500 Patient 155 lb Weight Weight Bed scale Measurement Method Physical Exam General Appearance: Alert, Oriented X3, Cooperative, No Acute Distress Skin: No Rashes, No Breakdown, No Significant Lesion HEENT: Atraumatic, PERRLA, EOMI, Mucous Membr. moist/pink Neck: Supple, No JVD Cardiovascular: Normal S1, Normal S2, No Murmurs Lungs: Clear to Auscultation, Normal Air Movement Abdomen: Normal Bowel Sounds, Soft, No Tenderness Extremities: No Clubbing, No Cyanosis, 1 + PITTING EDEMA IN BOTH LE Vascular: Normal Pulses, Pulses Symmetrical Assessment/Plan Assessment: is an 82 year-old male with past medical history of atrial fibrillation on coumadin, congestive heart failure, constrictive pericarditis, Hx. of TB treated with INH, pericardiectomy, which was done on 08/12/2004. He had post op complication of recurrent pleural effusion s/p pleurodesis. presented with SOB and B/L LE swelling admitted for CHF exacerbation. CXR today: 1. No interval change in left basilar masslike opacity and associated left-sided pleural thickening/subpleural fat.( for further F/U with PCP 2. Trace right-sided pleural effusion, decreased in size compared to prior CT scan of the abdomen from 11/20/2017. 3. Enlarged cardiomediastinal silhouette and central pulmonary vessels. Problem list: 1. Acute decompensation heart failure 2. Supratherapeutic INR 3. Mediastinal lymphadenopathy 4. Splenomegaly 5. Thrombocytopenia #Acute on chronic CHF decompensation heart failure: Improved Continue Lasix by mouth 40 mg daily His digoxin level was towards the higher level I.9, decreased home dose of digoxin to 1.25 mg daily ( discussed with Dr. Manzano) -Continue home metoprolol -Daily weight, strict I's and O's -TTE #Supratherapeutic INR: Patient on warfarin for atrial for ablation. INR supratherapeutic. Home warfarin dose 5 mg. This morning his INR was therapeutic Coumadin 5 mg was ordered for today #Mediastinal lymphadenopathy/Splenomegaly/Thrombocytopenia: Patient says he had a recent lung biopsy, he may be confusing this with pleurodesis. He is followed by Dr. Pradhan. Apparently, he is scheduled for a mediastinal biopsy in February in [place] for evaluation by hematology/oncology for potential lymphoma versus myeloproliferative disease. -Outpatient follow-up Patient is a stable for discharge today to follow up with his customs broker as an outpatient DVT prophylaxis with warfarin Heart healthy diet Full code Problem List: 1. CHF exacerbation Pain Ratin Pain Location: n/a Pain Goal: Remain pain free Pain Plan: PER [facility] Tomorrow's Labs & Rationales: N/A DVT/Prophylaxis: mechanical, pharmacological Iram Gleason MD 11/22/17 1106: Attending MD Review Statement Attending Statement Attending MD Statement: examined this patient, discuss w/resident/PA/ACCESS DIRECTOR, agreed w/resident/PA/ACCESS DIRECTOR, reviewed EMR data (avail) Attending Assessment/Plan: 82M PMH afib (on coumadin, s/p prior cardioversions), CHF, constrictive pericarditis/pericardectomy (Dr. Dobbs [place]), TB (INH) Rx), and h/o post operative pleural effusion requiring pleurodesis admitted for acute on chronic CHF with orthopnea, dyspnea on exertion, and bilateral lower extremity edema. Patient feels back to his baseline today. His lungs are clear and his legs have no edema bilaterally. He is walking independently and feels well. Plan - Continue on general medicine - Repeat CXR today - Follow cardiology recommendations - Continue PO Lasix - Continue home medications - DVT PPx - Pending cardiology eval and CXR will discharge home today or tomorrow
[2017-11-22 09:26] LABS: ABSOLUTE BASOPHIL COUNT 0 /CUMM (0.0-0.2); ABSOLUTE EOSINOPHIL COUNT 0.2 /CUMM (0.0-0.7); ABSOLUTE GRANULOCYTE CT 3.7 /CUMM (1.4-6.5); ABSOLUTE LYMPH COUNT 0.7 /CUMM (1.2-3.4); ABSOLUTE MONOCYTE COUNT 0.8 /CUMM (0.10-0.60); BASOPHIL % 0.4 % (0.0-2.0); EOSINOPHIL % 3.8 % (0-5); GRANULOCYTE % 67.5 % (42.2-75.2); HEMATOCRIT 36.4 % (42-52); MEAN CORPUSCULAR HGB 30.3 PG (27.0-31.0); MEAN CORPUSCULAR HGB CONC 33.3 G/DL (33.0-37.0); MEAN CORPUSCULAR VOLUME 90.8 FL (80.0-94.0); MEAN PLATELET VOLUME 11.6 FL (7.4-10.4); PLATELET COUNT 87 /CUMM (130-400); RBC DISTRIBUTION WIDTH 15.5 % (11.5-14.5); RED BLOOD CELL CT 4.01 /CUMM (4.70-6.10); WHITE BLOOD CELL COUNT 5.4 /CUMM (4.8-10.8)
[2017-11-22 09:43] LABS: PT 27.7 SEC (9.4-12.5)
--- NOTE | 2017-11-22 10:10 | PN- Cardiology ---
Subjective Subjective: The patient's is feeling well. He has no chest pain or shortness of breath. He has diuresed well. He is now on oral Lasix. Objective Vital Signs and I&Os Vital Signs Date Time Temp Pulse Resp B/P B/P Pulse O2 O2 Flow FiO2 Mean Ox Delivery Rate 11/22 911 98.2 64 14 122/68 11/22 0912 98.2 64 14 122/68 11/22 0800 93 Room Air 11/22 0558 97.8 67 20 100/52 92 Room Air 11/21 2209 98.1 88 20 116/60 94 11/21 2102 76 128/68 11/21 2100 78 128/68 11/21 1600 97.8 80 14 124/78 94 Room Air 11/21 1529 97.5 82 20 110/70 94 Room Air 11/21 1445 97.5 82 14 110/70 94 Room Air Intake & Output 11/22 1600 11/22 0800 11/22 0000 11/21 1600 11/21 0800 11/21 0000 Intake Total 120 240 Output Total 639 325 2547 2125 1750 Balance -480 -260 -1575 -2125 -1750 Intake, Oral 120 240 Output, Urine 202 844 7126 2125 1750 Patient 155 lb 172 lb Weight Weight Bed scale Bed scale Measurement Method Physical Exam: He is in no distress HEENT exam normal Chest clear Heart irregular rhythm, normal rate, no murmurs Extremities no edema Current Medications: Current Medications Sig/Marisa Start time Last Medication Dose Route Stop Time Status Admin Acetaminophen 650 MG Q6P PRN 11/20 1800 AC PO Acetaminophen 1,000 MG Q6P PRN 11/20 1800 AC IV Digoxin 0.25 MG DAILY 11/20 192 AC 11/22 PO 0912 Furosemide 40 MG DAILY 11/22 1000 AC 11/22 PO 12 Furosemide 40 MG BID 11/20 2214 DC 11/21 IV 1006 Metoprolol Tartrate 25 MG BID 11/20 2199 AC 11/22 PO 911 Results Last 48 Hrs of Labs/Mics: Laboratory Tests 11/22/17 0740: Anion Gap 11, Estimated GFR > 60, BUN/Creatinine Ratio 20.0, PT 27.7 H, INR 2.66 H, CBC w Diff NO MAN DIFF REQ, RBC 4.01 L, MCV 90.8, MCH 30.3, RDW 15.5 H, MPV 11.6 H, Gran % 67.5, Lymphocytes % 13.6 L, Monocytes % 14.7 H, Eosinophils % 3.8, Basophils % 0.4, Absolute Granulocytes 3.7, Absolute Lymphocytes 0.7 L, Absolute Monocytes 0.8 H, Absolute Eosinophils 0.2, Absolute Basophils 0, PUBS MCHC 33.3 11/21/17 0603: Anion Gap 15, Estimated GFR > 60, BUN/Creatinine Ratio 23.3, PT 43.7 *H, INR 4.22 *H, CBC w Diff NO MAN DIFF REQ, RBC 4.03 L, MCV 90.9, MCH 30.6, RDW 15.9 H, MPV 11.2 H, Gran % 65.8, Lymphocytes % 15.1 L, Monocytes % 15.3 H, Eosinophils % 3.4, Basophils % 0.4, Absolute Granulocytes 3.3, Absolute Lymphocytes 0.8 L, Absolute Monocytes 0.8 H, Absolute Eosinophils 0.2, Absolute Basophils 0, PUBS MCHC 33.7 11/20/17 2326: Troponin I 0.01, Digoxin 1.9 11/20/17 1545: Anion Gap 12, Estimated GFR > 60, BUN/Creatinine Ratio 20.0, Glucose 89, Calcium 8.5, Magnesium 1.7, Total Bilirubin 2.1 H, AST 38, ALT 37, Alkaline Phosphatase 173 H, Troponin I < 0.01, [id number] Pept 675 H, Total Protein 7.0, Albumin 3.5, Globulin 3.5, Albumin/Globulin Ratio 1.0 L, PT 46.3 *H, INR 4.48 * H, APTT 47 H, CBC w Diff NO MAN DIFF REQ, RBC 4.11 L, MCV 91.1, MCH 30.6, RDW 15.6 H, MPV 10.5 H, Gran % 73.9, Lymphocytes % 12.1 L, Monocytes % 11.1 H, Eosinophils % 2.7, Basophils % 0.2, Absolute Granulocytes 3.9, Absolute Lymphocytes 0.6 L, Absolute Monocytes 0.6, Absolute Eosinophils 0.1, Absolute Basophils 0, PUBS MCHC 33.6 Microbiology 11/21 1406 NASOPHARYN: Influenza Virus A & B Rapid Smear - COMP Recent Imaging Studies: CONCLUSIONS Normal global left ventricular size, wall thickness, systolic function with no obvious regional wall motion abnormalities. Left ventricular ejection fraction is estimated at >65 %. Moderate right atrial dilatation. Moderate to severe left atrial dilatation. Mild thickening/calcification of the mitral valve leaflets. Mild thickening/calcification of the mitral valve leaflets. Trace mitral regurgitation. Focal thickening of the aortic valve cusps. No aortic stenosis. Mild aortic regurgitation. Right ventricular systolic pressure estimated to be elevated at 40- 45 mmHg. Dilated IVC. Antwan Manzano M.D. (Electronically Signed) Final Date: 22 November 2017 13:07 Assessment/Plan Assessment/Plan The patient is looking and feeling well. He is clinically out of congestive heart failure. He can be discharged today on oral Lasix. His digoxin dose should be lowered to 0.125 mg daily. I will follow him up in the office soon. We will get the echocardiogram prior to discharge. Continue telemetry? No
[2017-11-22] MEDS ORDERED: DIGOXIN125 MCG PO ×2 (10:12→10:21)
--- NOTE | 2017-11-22 10:19 | Patient Discharge Instructions ---
Discharge Instructions General Discharge Information You were seen/treated for: CHF exacerbation, A FIb, Supratherapeutic INR Special Instructions: 1- Please follow up with PCP in 1 week of discharge 2- Please follow up with your respite coordinator in 1 week of discharge 3- Please get your INR level checked and report results to your respite coordinator for coumadin dose adjusment 4- please follow up with ignition specialist in 1 week of discahrge for mediastinal LN Diet Continue normal diet: Yes Recommended Diet: Heart Healthy Activity Full Activity/No Limits: Yes Acute Coronary Syndrome Inclusion Criteria At DC or during hospital stay patient has or had the following: ACS DIAGNOSIS No Discharge Core Measures Meds if any: Prescribed or Continued at Discharge Meds if any: NOT Prescribed or Continued at Discharge Congestive Heart Failure Inclusion Criteria At DC or during hospital stay patient has or had the following: CHF DIAGNOSIS Yes Discharge Core Measures Meds if any: Prescribed or Continued at Discharge TODD/ARB for EF <40% No Meds if any: NOT Prescribed or Continued at Discharge No TODD/ARB d/t Medical Contraindication Cerebrovascular accident Inclusion Criteria At DC or during hospital stay patient has or had the following: CVA/TIA Diagnosis No Discharge Core Measures Meds if any: Prescribed or Continued at Discharge Meds if any: NOT Prescribed or Continued at Discharge Venous thromboembolism Inclusion Criteria VTE Diagnosis No VTE Type NONE VTE Confirmed by (Test) NONE Discharge Core Measures - Per Current guidelines, there needs to be overlap - treatment for the first 5 days of Warfarin therapy. - If discharged on Warfarin prior to 5 days of - overlap therapy, the patient will need to be - assessed for post discharge needs including - *Post discharge parental anticoagulation - *Warfarin and/or parental anticoagulation education - *Follow up date to check INR post discharge At least 5 days overlap therapy as Inpatient No Meds if any: Prescribed or Continued at Discharge Note: Overlap Therapy is Warfarin and Anticoagulant Meds if any: NOT Prescribed or Continued at Discharge
[2017-11-22] MEDS ORDERED: LASIX40 M1 PO (10:21)
--- NOTE | 2017-11-22 11:50 | Discharge Summary ---
Visit Information Visit Dates Admission Date: 11/20/17 Discharge Date: 11/22/2017 Hospital Course Course Attending Physician: Iram Gleason MD Primary Care Physician: Carlitos MONIQUE,Hakeem Umana [facility] Course: is an 82 year-old male with past medical history of atrial fibrillation on coumadin, congestive heart failure, constrictive pericarditis, Hx. of TB treated with INH, pericardiectomy, which was done on 08/12/2004. He had post op complication of recurrent pleural effusion s/p pleurodesis. presented with SOB and B/L LE swelling admitted for CHF exacerbation Echo Cardiogram on 11/22/2017: Normal global left ventricular size, wall thickness, systolic function with no obvious regional wall motion abnormalities. Left ventricular ejection fraction is estimated at >65 %. Moderate right atrial dilatation. Moderate to severe left atrial dilatation. Mild thickening/calcification of the mitral valve leaflets. Mild thickening/calcification of the mitral valve leaflets. Trace mitral regurgitation. Focal thickening of the aortic valve cusps. No aortic stenosis. Mild aortic regurgitation. Right ventricular systolic pressure estimated to be elevated at 40- 45 mmHg. Dilated IVC. Chest x-ray on admission: 1. Patchy airspace opacities at the lung bases which may represent pulmonary edema. 2. Retrocardiac opacity may represent alveolar edema, atelectasis, consolidation not excluded. 3. Redemonstration of cardiomegaly with pericardial calcifications. Repeated chest x-ray on 11/22/17: 1. No interval change in left basilar masslike opacity and associated left-sided pleural thickening/subpleural fat. 2. Trace right-sided pleural effusion, decreased in size compared to prior CT scan of the abdomen from 11/20/2017. 3. Enlarged cardiomediastinal silhouette and central pulmonary vessels. #Acute on chronic decompensation heart failure: The patient has never had CHF in the past except when associated with constrictive pericarditis. Patient presented with history of weight gain, leg swelling, and shortness of breath that was worse on exertion. BNP was mildly elevated. Patient was initially treated with IV Lasix 40 mg twice a day , which was subsequently switched to by mouth Lasix 40 mg once daily. Patient reported improvement in his lower extremity edema and breathing and chest x-ray showed decrease in the size of right-sided pleural effusion during his hospital stay . He was discharged on by mouth Lasix 40 mg daily, in addition he was found to have digoxin level of 1.9, after discussion with hatchery worker Dr. Manzano his home dose of digoxin has been decreased to 0.125 daily. #Supratherapeutic INR: On admission the patient was noticed to have supratherapeutic INR in the range of 4, Patient on warfarin for atrial for ablation. His Coumadin was held for 2 days, INR normalized and the patient was sent on his home dose of warfarin 5 mg #Mediastinal lymphadenopathy/Splenomegaly/Thrombocytopenia: Patient says he had a recent lung biopsy, he may be confusing this with pleurodesis. He is followed by Dr. Pradhan. Apparently, he is scheduled for a mediastinal biopsy in February in [place] for evaluation by hematology/oncology for potential lymphoma versus myeloproliferative disease. -Outpatient follow-up #left basilar masslike opacity: CXR : left basilar masslike opacity and associated left-sided pleural thickening/subpleural fat.( for further F/U with PCP) Patient was discharged home to follow up with his PCP and hatchery worker as outpatient DVT prophylaxis with warfarin Heart healthy diet Full code Allergies: Coded Allergies: Sulfa (Sulfonamide Antibiotics) (Intermediate, HIVES 11/20/17) Disposition Summary Disposition Principal Diagnosis: Acute on chronic CHF exacerbation Additional Diagnosis: A. fib on Coumadin Supratherapeutic INR Mediastinal lymphadenopathy/Splenomegaly/Thrombocytopenia: Discharge Disposition: home or self care Discharge Instructions General Discharge Information Code Status: Full Code Patient's Diet: Heart healthy diet Patient's Activity: As tolerated Follow-Up Instructions/Appts: 1- Please follow up with PCP in 1 week of discharge 2- Please follow up with your hatchery worker in 1 week of discharge 3- Please get your INR level checked and report results to your hatchery worker for coumadin dose adjusment 4- please follow up with cabinet abrasive sandblaster in 1 week of discahrge for mediastinal LN Medications at Discharge Discharge Medications: Stop taking the following medications: Digoxin (Digoxin) 250 MCG TABLET ORAL DAILY Qty = 90 Continue taking these medications: Warfarin Sodium (Warfarin Sodium) 5 MG TABLET 1 Tablet ORAL DAILY Qty = 90 Comments: DID NOT ADMINISTER IN HOSPITAL Metoprolol Tartrate (Metoprolol Tartrate) 25 MG TABLET 1 Tablet ORAL TWICE DAILY Qty = 180 Comments: Last Taken: 11/22/17 Time: 0912 Start taking the following new medications: Digoxin (Digoxin) 125 MCG TABLET 1 Tablet ORAL DAILY Qty = 30 No Refills Instructions: . Furosemide (Lasix) 40 MG TABLET 1 Tablet ORAL DAILY Qty = 30 No Refills Copies To: Carlitos MONIQUE,Hakeem Umana
--- NOTE | 2017-11-22 13:08 | ECHOCARDIOGRAM REPORT ---
LYRIC PHILLIPS Age: 82 : 1935 Gender: M Exam Date: 11/22/2017 10:24 Exam Location: 2 [address] A Ht (in): 65 Wt (lb): 164 BSA: 1.86 BP: 121 / 60 Ordering Physician: Carole Flores MD Referring Physician: Priti Technologist: Josemanuel Romero KERRI Room Number: 220-1 Indications: Shortness of breath Rhythm: Sinus Technical Quality: Good FINDINGS Left Ventricle Normal global left ventricular size, wall thickness, systolic function with no obvious regional wall motion abnormalities. Left ventricular ejection fraction is estimated at >65 %. Right Ventricle The right ventricle is normal in size and function. Right Atrium Moderate right atrial dilatation. Left Atrium Moderate to severe left atrial dilatation. Mitral Valve Mild thickening/calcification of the mitral valve leaflets. Trace mitral regurgitation. Aortic Valve Focal thickening of the aortic valve cusps. No aortic stenosis. Mild aortic regurgitation. Tricuspid Valve Structurally normal tricuspid valve. [id number] tricuspid regurgitation. Right ventricular systolic pressure estimated to be elevated at 40-45 mmHg. Pulmonic Valve Structurally normal pulmonic valve. There is no pulmonic regurgitation. Pericardium Normal pericardium without effusion. No pleural effusion. Great Vessels Normal size aortic root. Dilated IVC. Aortic arch not visualized. CONCLUSIONS Normal global left ventricular size, wall thickness, systolic function with no obvious regional wall motion abnormalities. Left ventricular ejection fraction is estimated at >65 %. Moderate right atrial dilatation. Moderate to severe left atrial dilatation. Mild thickening/calcification of the mitral valve leaflets. Mild thickening/calcification of the mitral valve leaflets. Trace mitral regurgitation. Focal thickening of the aortic valve cusps. No aortic stenosis. Mild aortic regurgitation. Right ventricular systolic pressure estimated to be elevated at 40- 45 mmHg. Dilated IVC. Antwan Manzano M.D. (Electronically Signed) Final Date: 22 November 2017 13:07 MEASUREMENTS (Male / Female) Normal Values 2D ECHO LV Diastolic Diameter PLAX 3.2 cm 4.2 - 5.9 / 3.9 - 5.3 cm LV Systolic Diameter PLAX 2.2 cm 2.1 - 4.0 cm LV Fractional Shortening PLAX 31.3 % 25 - 46 % LV Ejection Fraction 2D Teich 60.4 % IVS Diastolic Thickness 1.0 cm LVPW Diastolic Thickness 1.2 cm LV Relative Wall Thickness 0.7 RV Internal Dim ED PLAX 3.8 cm 1.9 - 3.8 cm LVOT Diameter 1.7 cm Aortic Root Diameter 2.5 cm LA Systolic Diameter LX 6.0 cm 3.0 - 4.0 / 2.7 - 3.8 cm LA Volume 124.0 cm 18 - 58 / 22 - 52 cm Ascending Aorta Diameter 3.1 cm DOPPLER AV Peak Velocity 128.0 cm/s AV Peak Gradient 6.6 mmHg AV Mean Velocity 79.0 cm/s AV Mean Gradient 3.0 mmHg AV Velocity Time Integral 27.7 cm AI Deceleration Humphreys 115.0 cm/s AI Peak Velocity 258.0 cm/s AI Pressure Half Time 656.0 ms AI Peak Gradient 26.6 mmHg LVOT Peak Velocity 83.5 cm/s LVOT Peak Gradient 2.8 mmHg LVOT Mean Velocity 57.8 cm/s LVOT Mean Gradient 2.0 mmHg LVOT Velocity Time Integral 21.6 cm LVOT Stroke Volume 49.0 cm AV Area Cont Eq vti 1.8 cm AV Area Cont Eq pk 1.5 cm MV Peak Velocity 156.0 cm/s MV Peak Gradient 9.7 mmHg MV Mean Velocity 76.1 cm/s MV Mean Gradient 3.0 mmHg Mitral E Point Velocity 126.0 cm/s Mitral A Point Velocity 32.6 cm/s Mitral E to A Ratio 3.9 MV PHT Velocity 160.0 cm/s MV Deceleration Humphreys 777.0 cm/s MV Pressure Half Time 61.8 ms MV Area PHT 3.6 cm MV Deceleration Time 144.0 ms TR Peak Velocity 304.0 cm/s TR Peak Gradient 37.0 mmHg Right Atrial Pressure 10.0 mmHg Pulmonary Artery Systolic Pressu 47.0 mmHg Right Ventricular Systolic Press 47.0 mmHg PV Peak Velocity 93.7 cm/s PV Peak Gradient 3.5 mmHg PV Mean Velocity 53.3 cm/s PV Mean Gradient 1.0 mmHg PV Velocity Time Integral 15.3 cm LV E' Lateral Velocity 9.0 cm/s Mitral E to LV E' Lateral Ratio 14.0 LV E' Septal Velocity 10.6 cm/s Mitral E to LV E' Septal Ratio 11.9
--- NOTE | 2017-11-22 14:01 | RADIOLOGY REPORT ---
EXAMINATION: XR PORTABLE CHEST CLINICAL INFORMATION: Follow-up of pleural effusion. Presumptive diagnosis of CHF. COMPARISON: Several prior chest x-rays, most recent of which is dated 11/20/2017. CT scan of the abdomen dated 11/20/2017. CT scan of the chest dated 05/04/2017. TECHNIQUE: Portable semierect view of the chest was obtained. FINDINGS: The patient is status post median sternotomy and CABG surgery. The cardiomediastinal silhouette is enlarged. As seen on the prior chest CT scan, there is dense pericardial calcification seen along the heart base. There is a small left-sided pleural thickening/subpleural fat with associated left basilar masslike opacity again seen, unchanged from prior exam. Trace right-sided pleural effusion is seen. There is slight fullness of the pulmonary princess, most likely related to vascular ectasia. No pneumothorax is seen. Osteopenia is noted. No suspicious bone findings. IMPRESSION: 1. No interval change in left basilar masslike opacity and associated left-sided pleural thickening/subpleural fat. 2. Trace right-sided pleural effusion, decreased in size compared to prior CT scan of the abdomen from 11/20/2017. 3. Enlarged cardiomediastinal silhouette and central pulmonary vessels.
[2017-11-22 14:07] VITALS: BP 118/54
== END 2017-11-22 16:00 | DRG 293 ==
LOC: ERH 11:45 → 2NA 17:34 → ERHI 17:34 → EDBEDREQ 11-21 12:40 → ENRESERV 11-21 13:02 → ENTRNSPT 11-21 14:29 → ERHI 11-21 14:34 → EDTRNSPT 11-21 14:37 → EDTRNSPTSTS 11-21 14:37 → 2NA 11-21 14:47 → CMPTRNSPT 11-21 14:58 → 2NA 11-21 15:48 → ENPENDDIS 11-22 12:20 → ENTRNSPT 11-22 15:38 → 2NA 11-22 16:00 → CMPTRNSPT 11-22 16:03
PROVIDERS: Internal Medicine; Physician Assistant; Student in an Organized Health Care Education/Training Program
DX: I11.0 Hypertensive heart disease with heart failure (principal); D69.6 Thrombocytopenia, unspecified; I27.20 Pulmonary hypertension, unspecified; I50.33 Acute on chronic diastolic (congestive) heart failure; Z79.01 Long term (current) use of anticoagulants; I35.1 Nonrheumatic aortic (valve) insufficiency; I48.0 Paroxysmal atrial fibrillation; R59.0 Localized enlarged lymph nodes; Z86.11 Personal history of tuberculosis
CPT/HCPCS: 2NASP; ERO; 36415; 71045; 74177; 82436; 87804; 87804-59; 93005; 93010; 93306; 93970; J1650; J1940